=== PATIENT | male | born 1975 | race Caucasian/White ===

== ENCOUNTER 2016-12-07 13:54 | Outpatient (CLI) ==
[2012-12-25 13:02] VITALS: TEMP 98; BMI 23.6
--- NOTE | 2016-12-07 15:04 | DI ---
EXAM: Eight views of the cervical spine including flexion and extension imaging HISTORY: Radiculopathy. COMPARISON: Cervical spine x-rays 01/10/2009 FINDINGS: The cervical spine demonstrates straightening of the normal cervical lordosis which is sta ble. There is a small anterior disc osteophyte at C4-C5. There is scattered mild facet arthropathy . There is 0.3 cm of retrolisthesis of C4 on C5. Prevertebral soft tissues are normal. The odontoid process is unremarkable. The neural foramen demonstrate minimal scattered left neural foraminal na rrowing. There is 0.3 cm of retrolisthesis of C4 on C5 during extension imaging. There is no eviden ce of instability. IMPRESSION: 1. No acute compression fracture with grade 1 retrolisthesis of C4 on C5. This does not change dur ing flexion or extension imaging. 2. Multilevel scattered mild degenerative disease of the spine with scattered left neural foraminal narrowing.
== END 2016-12-07 13:55 | disposition home or self-care (01) ==
LOC: RAD 13:54
PROVIDERS: ATTEND Nurse Practitioner Family
DX: M54.12 Radiculopathy, cervical region (principal); M54.2 Cervicalgia; Z87.39 Personal history of other diseases of the musculoskeletal system and connective tissue

== ENCOUNTER 2016-12-11 06:58 | Outpatient (CLI) ==
[2012-12-25 13:02] VITALS: TEMP 98; BMI 23.6
--- NOTE | 2016-12-11 10:28 | MRI ---
EXAM: Cervical spine MRI without contrast. HISTORY: Cervical spondylolisthesis. COMPARISON: Cervical spine radiographs 12/07/2016. TECHNIQUE: Multiplanar, multisequence MR images were acquired of the cervical spine without contras t. FINDINGS: The craniocervical junction is unremarkable. There is hyperintense T2 signal in the bila teral paracentral cervical cord centered at C4-5. On the right, this extends 1.7 cm from the upper C4 level to the mid C5 level and measures a maximum at C4-5 of 2.8 mm AP by 1.8 mm TX. On the left, the hyperintense T2 cord signal is centered at C4-5 and measures 2.6 mm AP by 1.8 mm TX by 4 mm CC. There is mild mid-cervical kyphosis and minor mid cervical levoscoliosis centered at C4-5. There is 1 mm retrolisthesis of C3 on C4 and C4 on C5. The cervical vertebra are generally normal in heig ht and intrinsic bone marrow signal. There is mild disc space narrowing anteriorly at C3-4. At C4-5 , there is mild disc space narrowing which is greatest anteriorly and at C5-6, there is minor disc s pace narrowing. Canal diameter is developmentally narrow. There are no paravertebral masses. The visualized lung apices are clear. C2-3: The intervertebral disc is normal. C3-4: There is a dorsal spondylotic ridge with a more focal left paracentral component and small di sc protrusion that mildly indents the left cervical cord. Ligamentum flavum hypertrophy is present a nd there is mild spinal stenosis. AP diameter of the thecal sac is 8.2 mm. C4-5: There is a moderate dorsal spondylotic ridge that is asymmetric to the right with a small harish tral disc protrusion that moderately indents the cervical cord, greater on the right. Bilateral unc overtebral hypertrophy is present, greater on the right and there is ligamentum flavum hypertrophy. These findings cause moderate spinal stenosis, right lateral recess stenosis with encroachment on th e right C5 nerve roots and severe right and moderate left neural foraminal stenosis. AP diameter of the thecal sac is 5.2 mm. C5-6: There is a posterior disc osteophyte complex with a small central disc protrusion that minima lly indents the cervical cord. Ligamentum flavum hypertrophy and bilateral uncovertebral hypertroph y are present. There is mild spinal stenosis and severe bilateral foraminal stenosis. AP diameter of the thecal sac is 7.4 mm. C6-7: There is a small posterior disc bulge, a minor right paracentral disc osteophyte complex and ligamentum flavum hypertrophy. There is minor right neural foraminal stenosis. C7-T1: There is a minor left posterior disc bulge without central canal stenosis and mild left face t arthropathy. IMPRESSION: 1. Mild cervical degenerative spondylosis which in this patient with a developmentally narrow canal causes mild C3-4 and C5-6 and moderate C4-5 spinal stenosis. 2. Moderate dorsal spondylotic ridge C4-5 with small central disc protrusion which moderately inden ts the cervical cord, greater on the right and causes bilateral paracentral hyperintense T2 signal e shanice or myelomalacia in the cervical cord. Neurosurgical consultation is advised. 3. Hyperintense T2 signal is present in the right cervical cord centered at C4-5 extending 1.7 cm f rom the upper C4 level to the mid C5 level and in the left cervical cord at C4-5. Neurosurgical consultation is advi sed. 4. Severe right and moderate left C4-5 and severe bilateral C5-6 neural foraminal stenosis.
== END 2016-12-11 06:59 | disposition home or self-care (01) ==
LOC: RAD 06:58
PROVIDERS: ATTEND Nurse Practitioner Family
DX: M43.10 Spondylolisthesis, site unspecified (principal)

== ENCOUNTER 2017-10-29 04:15 | Emergency (ER) ==
[2017-10-29 04:51] VITALS: BP 169/110; TEMP 98.1; BMI 25.0
[2017-10-29] MEDS ORDERED: TORADOL IM STA (04:53)
[2017-10-29] MEDS ORDERED: NORFLEX IM STA (04:53)
[2017-10-29] MEDS ORDERED: DECADRON 4 MG/ML SDV IM STA (04:56)
--- NOTE | 2017-10-29 05:26 | ED.PDOC ---
General ED Provider: Dr. GUTIERREZ CASTELAN-ER Chief Complaint: Neck Pain Non-Injury Stated Complaint: my neck has flared up Time Seen by Physician: 04:20 Mode of Arrival: Walk-In Information Source: Patient Exam Limitations: No limitations Nursing and Triage Documentation Reviewed and Agree: Yes Reviewed sepsis parameters & appropriate labs ordered?: Yes System Inflammatory Response Syndrome: Not Applicable Sepsis Protocol: For patient's 13 years and over: Temp is 96.8 and below OR 101 and greater Pulse >90 BPM Resp >20/minute Acutely Altered Mental Status Are patient's symptoms suggestive of a new infection, such as: -Pneumonia -Skin, Soft Tissue -Endocarditis -UTI -Bone, Joint Infection -Implantable Device -Acute Abdominal Infection -Wound Infection -Meningitis -Blood Stream Catheter Infection -Unknown Musculoskeletal Complaint Exam - Neck Pain Complaint/Exam Mechanism of Injury: Reports: No known trauma Onset/Duration: chronic but 3 days ago Symptoms Are: Still present Timing: Constant Episodes Lasting: Days Initial Severity: Mild Current Severity: Moderate Location: Reports: Discrete Character: Reports: Dull, Aching, Throbbing, Spasmodic, Stiffness Aggravating: Reports: Movement Associated Signs and Symptoms: Denies: Swelling, Redness, Bruising, Fever, Nuchal rigidity, Weakness, Headache, Paresthesia Related History: Reports: Previous neck injury Meningitis Risk Factors: Reports: None Cervical Spine Injury Risk Factors: Reports: None Carotid Bruit Present: No Pain on Passive Flexion: Yes Positive Kernig's Sign: Yes ROM Limited In: Present: Flexion, Extension Pain Located at: posterior neck Tenderness: Present: Midline Focal Weakness: Present: None Focal Sensory Loss: Reports: None Nexus Low Risk Criteria: No post-midline CS tender Differential Diagnoses: Arthritis, Dystonia Review of Systems - Review Of Systems Constitutional: Reports: No symptoms Eyes: Reports: No symptoms Ears, Nose, Mouth, Throat: Reports: No symptoms Respiratory: Reports: No symptoms Cardiac: Reports: No symptoms GI: Reports: No symptoms : Reports: No symptoms Musculoskeletal: Reports: Muscle pain, Muscle stiffness, Neck pain Skin: Reports: No symptoms Neurological: Reports: No symptoms Endocrine: Reports: No symptoms Hematologic/Lymphatic: Reports: No symptoms All Other Systems: Reviewed and Negative Past Medical History - Past Medical History Previously Healthy: No Endocrine: Reports: Unknown Cardiovascular: Reports: Unknown Respiratory: Reports: Unknown Hematological: Reports: Unknown Gastrointestinal: Reports: Unknown Genitourinary: Reports: Unknown Neuro/Psych: Reports: Unknown Musculoskeletal: Reports: Unknown Cancer: Reports: Unknown - Surgical History General Surgical History: Reports: Unknown - Family History Family History: Reports: Unknown - Social History Smoking Status: Current every day smoker, Heavy tobacco smoker Hx Substance Use: No Alcohol Screening: Occasionally Lives: With family - Immunizations Tetanus Shot up to Date: Yes Physical Exam - Physical Exam Appearance: Well-appearing, No pain distress, Well-nourished Pain Distress: Moderate Eyes: JORGE, EOMI, Conjunctiva clear ENT: Ears normal, Nose normal, Oropharynx normal Neck: Nonsupple Respiratory: Airway patent Cardiovascular: RRR, Pulses normal, No rub, No murmur GI/: Soft, Nontender, No masses, Bowel sounds normal, No Organomegaly Musculoskeletal: Limited ROM Skin: Warm, Dry, Normal color Neurological: Sensation intact, Motor intact, Reflexes intact, Cranial nerves intact, Alert, Oriented Psychiatric: Affect appropriate, Mood appropriate Re-Evaluation - Re-Evaluation Time of Re-Evaluation: 05:27 Status: Improved Vital Signs Stable: Yes Pain Level: 2 Appearance: NAD Lungs: Clear Skin: Warm and Dry Neuro: Alert and Oriented X3 CV: RRR Critical Care Note - Critical Care Note Total Time (mins): 0 Course - Course Orders, Labs, Meds: Orders Category Date Time Status Dexamethasone 4 mg/ml Inj [Decadron 4 mg/ml Sdv] MEDS 10/29/17 04:56 Discontinued 8 mg IM ONCE STA Ketorolac Tromethamine [Toradol] MEDS 10/29/17 04:53 Discontinued 60 mg IM ONCE STA Orphenadrine Citrate [Norflex] MEDS 10/29/17 04:53 Discontinued 60 mg IM ONCE STA Medications Discontinued Medications Generic Name Dose Route Start Last Admin Trade Name Freq PRN Reason Stop Dose Admin Dexamethasone Sodium Phosphate 8 mg 10/29/17 04:56 10/29/17 05:02 Decadron 4 Mg/Ml Sdv IM 10/29/17 04:57 8 mg ONCE STA Administration Ketorolac Tromethamine 60 mg 10/29/17 04:53 10/29/17 05:05 Toradol IM 10/29/17 04:54 60 mg ONCE STA Administration Orphenadrine Citrate 60 mg 10/29/17 04:53 10/29/17 05:05 Norflex IM 10/29/17 04:54 60 mg ONCE STA Administration his pain is clearly musculoskeletal from his posterior neck--no chest pain or dyspnea and movement clearly exacerbates his pain) Vital Signs: Temp Pulse Resp BP Pulse Ox 10/29/17 04:17 98.1 F 113 H 20 169/110 H 98 Departure - Departure Time of Disposition: 05:28 Disposition: HOME SELF-CARE Discharge Problem: Chronic neck pain Instructions: Cervical Spinal Stenosis (ED) Condition: Good Pt referred to PMD for follow-up: Yes IPMP verified?: No Additional Instructions: norflex 100mg q 12hrs #30--f/u with clinic and informatics nurse specialist as you outlined today Allergies/Adverse Reactions: Allergies cyclobenzaprine Allergy (Verified 10/29/17 04:28) Blurring vision tramadol HCl [From Ultram] Allergy (Verified 10/29/17 04:28) blurring vision Home Medications: Ambulatory Orders Ibuprofen 800 mg PO BID PRN 12/12/15 Acetaminophen 650 mg PO Q6H PRN 12/07/16 Naproxen Sodium [Aleve] 220 mg PO DAILY 12/07/16 Disposition Discussed With: Patient
== END 2017-10-29 05:37 | disposition home or self-care (01) ==
LOC: ED 04:15
DX: M54.2 Cervicalgia (principal); F17.210 Nicotine dependence, cigarettes, uncomplicated
CPT/HCPCS: 96372; 99282

== ENCOUNTER 2018-04-11 11:50 | Outpatient (CLI) ==
[2012-12-25 13:02] VITALS: TEMP 98
== END 2018-04-11 11:51 | disposition home or self-care (01) ==
LOC: FCC-LAB 11:50
PROVIDERS: ATTEND Family Medicine
DX: R93.7 Abnormal findings on diagnostic imaging of other parts of musculoskeletal system (principal); M54.12 Radiculopathy, cervical region; Z79.891 Long term (current) use of opiate analgesic; Z51.81 Encounter for therapeutic drug level monitoring
CPT/HCPCS: 36415; 80306